=== PATIENT | female | born 1980 | race Hispanic/Latino ===

== ENCOUNTER 2020-05-15 16:33 | Day surgery (SDC) | payer BC ==
[2020-05-15] MEDS ORDERED: hydrALAZINE 20 MG/ML VIAL SLOW IVP PRN (19:30)
== END 2020-05-15 19:25 | disposition home or self-care (01) ==
LOC: CSHLD/OP 16:33 → CSHLD 17:03 → CSHLD/OP 19:25
PROVIDERS: ATTEND Obstetrics & Gynecology
DX: Z04.1 Encounter for examination and observation following transport accident (principal); O09.813 Supervision of pregnancy resulting from assisted reproductive technology, third trimester; O09.513 Supervision of elderly primigravida, third trimester; Z3A.30 30 weeks gestation of pregnancy; V49.40XA Driver injured in collision with unspecified motor vehicles in traffic accident, initial encounter
CPT/HCPCS: 99282

== ENCOUNTER 2020-12-16 13:01 | Outpatient (CLI) | payer BC | END 2020-12-16 13:02 | disposition home or self-care (01) | LOC: CSHMAMMO 13:01 | PROVIDERS: ATTEND Advanced Practice Midwife | DX: N63.10 Unspecified lump in the right breast, unspecified quadrant (principal) | CPT/HCPCS: G0279 ==